=== PATIENT | female | born 1935 | race Caucasian/White ===

== ENCOUNTER 2022-02-19 10:49 | Emergency (ER) | payer MEDICARE ==
[~2022-02-19] VITALS: Ht 160 cm; Wt 57.2 kg
[2022-02-19 11:00] VITALS: BP_SYST 141
--- NOTE | 2022-02-19 11:00 | NUR ---
Patient to ER bed 1 to gown for evaluation. Side rails up. Report given to PIETRO COVINGTON.
[2022-02-19] MEDS ORDERED: MORPHINE 4 MG INJ. 4 MG/ML VIAL IVP ONE ×2 (11:15)
--- NOTE | 2022-02-19 11:15 | NUR ---
Pt was brought in by BLS after a [facility] fall at home this am approx 1030. Pt states she was ambulating toward bathroom with her walker when she believes it tipped and she fell to the ground. did not see fall but called 911 immediately. Denies LOC, n/v/headache. Pt has a hx of lymphoma, bilat blood clots to lower ext being treated with blood thinners. Pt is currently receiving chemotherapy x1 per week. A&Ox4, calm and cooperative. Will continue to provide are as ordered.
[2022-02-19 11:59] LABS: BASOPHILS % (AUTO) 0.3 % (0.0-2.0); EOSINOPHILS % (AUTO) 0.1 % (0.0-4.0); HEMATOCRIT 29.7 % (36-48); HEMOGLOBIN 9.9 g/dL (12.0-16.0); LYMPHOCYTES # (AUTO) 0.3 K/uL (1.0-5.5); LYMPHOCYTES % (AUTO) 3.4 % (20.5-51.5); MEAN CORPUSCULAR HEMOGLOBIN 28 pg (27-31); MEAN CORPUSCULAR HGB CONC 33 % (32-36); MEAN CORPUSCULAR VOLUME 84 fL (79.0-98.0); MONOCYTES # (AUTO) 0.5 K/uL (0.0-1.0); MONOCYTES % (AUTO) 6.4 % (1.7-9.3); NEUTROPHILS # (AUTO) 7.6 K/uL (1.8-7.7); NEUTROPHILS % (AUTO) 89.8 % (40.0-70.0); PLATELET COUNT (AUTO) 133 K/uL (130-430); RED BLOOD CELL COUNT(AUTO) 3.56 MIL/uL (4.2-6.2); RED CELL DISTRIBUTION WIDTH 19.4 % (9.0-15.0); WHITE BLOOD COUNT (AUTO) 8.5 K/uL (4.8-10.8)
[2022-02-19 12:13] LABS: ANION GAP 8 (5-15); CHLORIDE 98 mmol/L (98-107); CREATININE 0.54 mg/dL (0.55-1.30); GLUCOSE 91 mg/dL (70-99); POTASSIUM 3.7 mmol/L (3.5-5.1); UREA NITROGEN, BLOOD 14 mg/dL (8-21)
[2022-02-19 12:15] LABS: INR 1.1 (0.8-1.2)
[2022-02-19 12:27] LABS: ALANINE AMINOTRANSFERASE 12 U/L (12-78); ALBUMIN 2.2 g/dL (3.4-4.8); ASPARTATE AMINOTRANSFERASE 18 U/L (10-37); TOTAL BILIRUBIN 0.7 mg/dL (0.0-1.0)
--- NOTE | 2022-02-19 12:52 | NUR ---
SENDY Staples at bedside examining patient.
[2022-02-19] MEDS ORDERED: PHYTONADIONE 10 MG/ML AMP IV ONE (13:30)
[2022-02-19] MEDS ORDERED: levETIRAcetam 500 MG IV PREMIX 100 ML IV ONE (13:30)
[2022-02-19 13:42] LABS: BILIRUBIN,URINE NEGATIVE (NEGATIVE); BLOOD, URINE NEGATIVE (NEGATIVE); CLARITY/URINE CLEAR (CLEAR); COLOR,URINE YELLOW (YELLOW); GLUCOSE,URINE NEGATIVE (NEGATIVE); KETONES,URINE NEGATIVE (NEGATIVE); LEUKOCYTE ESTERASE ,URINE NEGATIVE (NEGATIVE); NITRITE, URINE NEGATIVE (NEGATIVE); PH,URINE 7.5 (5.0-8.0); PROTEIN URINE NEGATIVE (NEGATIVE); UROBILINOGEN,URINE 0.2 (0.2-1.0)
[2022-02-19] MEDS ORDERED: ONDANSETRON HCL 4 MG/2 ML VIAL IVP ONE (13:45)
[2022-02-19] MEDS ORDERED: PHYTONADIONE 10 MG in NS 50 ML IV ONE (14:00)
[2022-02-19] MEDS ORDERED: HUMAN PROTHROMBIN COMPLX IV ONE (14:00)
[2022-02-19] MEDS ORDERED: PHYTONADIONE 10 MG in NS 50 ML SUBCUT ONE (14:00)
[2022-02-19] MEDS ORDERED: WATER FOR INJECTION STERILE IV ONE (14:00)
--- NOTE | 2022-02-19 14:49 | NUR ---
[facility] called, transport ALS grape picker ETA [id number].
[2022-02-19] MEDS ORDERED: DIPHTH,PERTUSS(ACELL),TET VAC 0.5 ML VIAL (Tdap) I.M. ONE (15:00)
[2022-02-19] MEDS ORDERED: MORPHINE 2 MG/ML INJ. SYRINGE IVP ONE (15:30)
[2022-02-19 16:35] VITALS: BP_SYST 140
--- NOTE | 2022-02-19 16:55 | NUR ---
Patient to be transferred to [place]. Is being transferred due to higher level of care. Receiving facility has accepting physician and available space. ER physician Dr. Dias has signed transfer form. Patient or responsible libertarian has agreed to transfer and signed form. Patient belongings inventoried and will be sent with patient. Copy of nursing notes, lab reports, EKG, Physicians Orders and X-rays to be sent with patient. Report called to Pau at receiving facility. Receiving physician is Dr. Sandoval. [facility] has been called for transfer. ETA is 1750.
== END 2022-02-19 16:35 | disposition short-term general hospital (02) ==
LOC: SED 10:49
DX: M25.551 Pain in right hip (principal); Z79.899 Other long term (current) drug therapy
CPT/HCPCS: 99285; 70450; 96365; 96375; 71045; 80053; 85025; 85610; 85730; 86886; 86900; 86901; 87086; 84484; 36415; 93005; 73080; 73502; 72125; 76376; 96376; 83605; 81003; 72170; J1953; J2405; J3430; J2270 ×2